=== PATIENT | female | born 1975 ===

== ENCOUNTER 2017-09-23 11:35 | Emergency (ER) | payer MEDICARE ==
--- NOTE | 2017-09-23 12:03 | C.PDOC ---
History Of Present Illness 41 y/o female with history of Bipolar disorder, DM and HTN brought to ED by son for evaluation of patient becoming violent and talking gibberish. As per son patient is not taking medication. HPI limited secondary to patient's clinical condition. Time Seen by Provider: 09/23/17 11:43 Chief Complaint (Nursing): Psychiatric Evaluation History Per: Family History/Exam Limitations: clinical condition Onset/Duration Of Symptoms: Days Current Symptoms Are (Timing): Still Present Suicide/Self Injury Attempted (Context): None Modifying Factor(s): None Severity: Moderate Recent travel outside of the [place]: No Additional History Per: Family Past Medical History Reviewed: Historical Data, Nursing Documentation, Vital Signs Vital Signs: Last Vital Signs Temp 98.3 F 09/23/17 16:14 Pulse 100 H 09/23/17 16:14 Resp 16 09/23/17 16:14 BP 125/72 09/23/17 16:14 Pulse Ox 98 09/23/17 16:41 - Medical History PMH: Bipolar Disorder, Depression, Diabetes, HTN Surgical History: No Surg Hx Family History: States: No Known Family Hx - Social History Hx Tobacco Use: No Hx Alcohol Use: No Hx Substance Use: No - Immunization History Hx Tetanus Toxoid Vaccination: No Hx Influenza Vaccination: No Hx Pneumococcal Vaccination: No Review Of Systems Gastrointestinal: Negative for: Nausea, Vomiting Neurological: Negative for: Weakness, Numbness Psych: Negative for: Suicidal ideation Physical Exam - Physical Exam Appears: Non-toxic, No Acute Distress Skin: Warm, Dry, No Rash Head: Atraumatic, Normacephalic Eye(s): bilateral: Normal Inspection Oral Mucosa: Moist Neck: Normal ROM, Supple Cardiovascular: Rhythm Regular Respiratory: Normal Breath Sounds, No Rales, No Rhonchi, No Wheezing Gastrointestinal/Abdominal: Soft, No Tenderness, No Guarding, No Rebound Back: No CVA Tenderness, No Paraspinal Tenderness Neurological/Psych: Oriented x3, Normal Speech ED Course And Treatment - Laboratory Results Result Diagrams: 09/23/17 12:28 09/23/17 12:28 Lab Interpretation: Normal Urine POC: Negative ECG: Interpreted By Me ECG Rhythm: Sinus Rhythm Rate From EC O2 Sat by Pulse Oximetry: 98 (RA) Pulse Ox Interpretation: Normal - Radiology CXR: Interpreted by Me CXR Interpretation: Yes: No Acute Disease Progress Note: Patient aggitated. Case discussed and patient evaluated by metal control worker who will have patient screened. Treated with haldol 5 mg IM and Ativan 2 mg IM. On re-evaluation resting in no distress Reassessment Condition: Improved Medical Decision Making Medical Decision Making: Patient medically cleared for psych evaluation Disposition - Disposition Disposition Time: 19:00 Condition: STABLE Forms: [facility] (Dive[facility]) - POA Present On Arrival: None - Clinical Impression Clinical Impression: Manic bipolar I disorder - PA / MECHANICAL PRODUCT DESIGN ENGINEER / Resident Statement MD/DO has reviewed & agrees with the documentation as recorded. - Scribe Statement The provider has reviewed the documentation as recorded by the Scribbia Thorpe All medical record entries made by the Mendy were at my direction and personally dictated by me. I have reviewed the chart and agree that the record accurately reflects my personal performance of the history, physical exam, medical decision making, and the department course for this patient. I have also personally directed, reviewed, and agree with the discharge instructions and disposition. Physician Patient Turnover Patient Signed Over To: Martha Bundy Handoff Comments: Pending [facility] screener evaluation
[2017-09-23 12:42] LABS: BASO # 0.2 K/uL (0.0-0.2); BASO % 1.7 % (0.0-2.0); EOS # 0.1 K/uL (0.0-0.7); EOS % 0.7 % (0.0-4.0); HCG,QUALITATIVE URINE NEGATIVE (NEGATIVE); LYMPH # 4.9 K/uL (1.0-4.3); LYMPH % 45.3 % (20.0-40.0); MEAN CELL VOLUME 84.6 fL (81.0-99.0); MEAN CORPUSCULAR HEMOGLOBIN 28.9 pg (27.0-31.0); MEAN CORPUSCULAR HGB CONC 34.2 g/dL (33.0-37.0); MEAN PLATELET VOLUME 7.5 fL (7.2-11.7); MONO # 0.6 K/uL (0.0-0.8); NEUT % 46.3 % (50.0-75.0); RBC 4.15 Mil/uL (3.80-5.20); RED CELL DISTRIBUTION WIDTH 14.2 % (11.5-14.5); WHITE BLOOD COUNT 10.7 K/uL (4.8-10.8)
[2017-09-23 12:46] LABS: SQUAMOUS EPITHIAL < 1 /hpf (0-5); URINE BILIRUBIN NEGATIVE (NEGATIVE); URINE BLOOD NEGATIVE (NEGATIVE); URINE CLARITY Clear (Clear); URINE COLOR Yellow (YELLOW); URINE GLUCOSE (UA) 2+ mg/dL (Normal); URINE LEUKOCYTE ESTERASE NEG Leu/uL (Negative); URINE PROTEIN NEGATIVE (NEGATIVE); URINE UROBILINOGEN NORMAL mg/dL (0.2-1.0)
[2017-09-23 12:52] LABS: ALB/GLOB RATIO 1.2 (1.0-2.1); ALBUMIN 4.5 g/dL (3.5-5.0); ALT/SGPT 25 U/L (9-52); AST/SGOT 23 U/L (14-36); BLOOD UREA NITROGEN 9 mg/dL (7-17); CALCIUM 9.2 mg/dl (8.6-10.4); GFR AFRICAN-AMERICAN > 60; GFR NON-AFRICAN AMERICAN > 60
[2017-09-23 13:27] LABS: BARBITURATES, UR NEGATIVE (NEGATIVE); BENZODIAZEPINES, UR NEGATIVE (NEGATIVE); OPIATES, UR NEGATIVE (NEGATIVE); PHENCYCLIDINE, UR NEGATIVE (NEGATIVE)
--- NOTE | 2017-09-23 15:13 | RAD ---
PROCEDURE: CHEST RADIOGRAPH, 1 VIEW HISTORY: SOB COMPARISON: 06/01/2012. FINDINGS: LUNGS: The lungs are clear. PLEURA: No pneumothorax or pleural fluid seen. CARDIOVASCULAR: Normal. OSSEOUS STRUCTURES: No significant abnormalities. VISUALIZED UPPER ABDOMEN: Normal. OTHER FINDINGS: None. IMPRESSION: No active pulmonary disease.
[2017-09-24 09:14] VITALS: RESP 18
--- NOTE | 2017-09-24 12:11 | PCM.PSYCH ---
Initial Psychiatric Evaluation - Initial Psychiatric Evaluation Type of Admission: Involuntary Chief Complaint (in patient's own words): "I'm fine" History of Present Illness and Precipitating Events: The patient is seen, chart reviewed and case discussed. Consultation was requested because of her psychiatric history. The patient is screened by [facility] and she is waiting to be transferred for involuntary admission there. This is a 41-year-old female, , has children, living with her mother and 2 children. On disability. She goes to [facility] for outpatient care. The patient has an extensive history of multiple psychiatric admissions, including involuntary ones. As per records, she stopped taking current medications and started to decompensate. Her family called 911 because she was getting violent, agitated and very paranoid. The patient minimizes this condition and claims she is fine and that she should go home. She doesn't have insight into her condition at this point. She is still paranoid, odd, thought disordered and somewhat agitated. Past psych history: Multiple admissions Family psych history: Denied Medical history: Denied Past Psychiatric History - Past Psychiatric History Previous Treatment History: Inpatient Pertinent Medical Hx (Current Medical&Sleep Prob, Allergies): Allergies Allergy/AdvReac Type Severity Reaction Status Date / Time No Known Allergies Allergy Verified 08/19/14 04:25 MetFORMIN [glucOPHAGE] 1,000 mg PO BID 09/23/17 Zolpidem [Ambien] 5 mg PO DAILY 09/23/17 amLODIPine [Norvasc] 5 mg PO DAILY 09/23/17 Review of Systems - Psychiatric Psychiatric: Abnormal Sleep Pattern, Anxiety, Difficulty Concentrating, Irritability, Paranoia. absent: Hallucinations, Homicidal Ideation, Suicidal Ideation Mental Status Examination - Personal Presentation Personal Presentation: Looks stated age - Affect Affect: Constricted - Motor Activity Motor Activity: Psychomotor Agitation (mild) - Reliability in Providing Information Reliability in Providing Information: Poor, due to alteration in thoughts - Speech Speech: Disorganized - Mood Mood: Other (irate) - Formal Thought Process Formal Thought Process: Delusions, Paranoia, Loosening of associations - Cognitive Functions Orientation: Person, Place, Time Sensorium: Alert Attention/Concentration: Easily distracted Abstract Thinking: Carroll Estimate of Intelligence: Average Judgement: Imparied, as evidence by: Poor judgement Memory: Recent intact, as evidence by: Ability to recall events of the day, Remote impaired as evidenced by: Inability to recall sig life events - Risk Risk: Diminished functioning - Strength & Assets Inventory Strength & Assets Inventory: Family support - Limitations Limitations: Other DSM 5 DX - DSM 5 DSM 5 Diagnosis: Schizoaffective disorder, bipolar type - Recommended/Plan of Treatment Treatment Recommendations and Plan of Treatment: Support and psychoeducation Close observation Family contact Risperdal 2 mg for psychosis Cogentin 1 mg for potential EPS/dystonia As needed Haldol for agitation As needed [facility] for severe anxiety or agitation Transferred to [facility]-involuntary 33 min
[2017-09-24 21:49] VITALS: O2SAT 100
[2017-09-24 23:35] VITALS: BP 127/76; PULSE 81; TEMP 98.8
== END 2017-09-24 23:50 | disposition short-term general hospital (02) ==
LOC: C.ER 11:35
DX: F25.0 Schizoaffective disorder, bipolar type (principal); I10 Essential (primary) hypertension; E11.9 Type 2 diabetes mellitus without complications
CPT/HCPCS: 71045; 80053; 81001; 82948; 84703; 85025; 93005; 96372; 99285; G0480; J1630; J2060

== ENCOUNTER 2018-05-13 13:55 | Outpatient (CLI) | payer MEDICARE | END 2018-05-13 13:56 | disposition home or self-care (01) | LOC: C.LAB 13:55 | DX: F31.5 Bipolar disorder, current episode depressed, severe, with psychotic features (principal) ==

== ENCOUNTER 2018-06-14 11:39 | Outpatient (CLI) | payer MEDICARE, MEDICAID | END 2018-06-14 11:40 | disposition home or self-care (01) | LOC: C.MAMMO 11:39 | DX: Z12.31 Encounter for screening mammogram for malignant neoplasm of breast (principal) ==